=== PATIENT | female | born 1950 | race Caucasian/White ===

== ENCOUNTER 2021-04-03 13:14 | Inpatient (IN) ==
[2021-04-03] MEDS ORDERED: Naloxone 0.4 MG/ML INJ IVP PRN (17:15)
[2021-04-03] MEDS ORDERED: *HR* HYDROcodone/Acet 5/325 mg TABLET PO PRN (17:21)
[2021-04-03] MEDS: Nicotine 21 MG PATCH.TD24 TD SCH (18:08)
[2021-04-03 18:52] LABS: Basophils % 0.1 %; Eosinophils % 0.1 %; Hematocrit 37.4 % (35.3-44.9); Immature Granulocytes % 0.4 % (0-4); Lymphocytes # 4.4 K/mcL (0.6-4.6); Lymphocytes % 26.8 %; Mean Corpuscular HGB Conc 32.1 g/dL (31.6-35.5); Mean Corpuscular Hemoglobin 30.2 pg (28.0-33.3); Mean Corpuscular Volume 94.2 fL (83.0-100.0); Mean Platelet Volume 10.2 fL (9.4-12.4); Monocytes # 0.9 K/mcL (0.0-1.3); Monocytes % 5.2 %; Neutrophils # 11.1 K/mcL (1.6-8.9); Nucleated Red Blood Cells 0.1 /100 WBC (0); Platelet Count 290 K/mcL (140-400); Red Blood Count 3.97 M/mcL (3.82-4.97); Red Cell Distribution Width 12.8 % (11.5-14.5); Segmented Neutrophils % 67.4 %; White Blood Count 16.4 K/mcL (4.3-11.1)
[2021-04-04] MEDS: Ringers Solution, Lactated 1,000 ML IVC SCH (00:33)
[2021-04-04] MEDS: Acetaminophen 325 MG TABLET PO PRN ×2 (04:33→19:20)
[2021-04-04 05:24] LABS: Basophils % 0.3 %; Eosinophils % 0.1 %; Hematocrit 32.5 % (35.3-44.9); Hemoglobin 10.5 g/dL (11.5-15.4); Immature Granulocytes % 0.3 % (0-4); Lymphocytes # 4.9 K/mcL (0.6-4.6); Lymphocytes % 41.4 %; Mean Corpuscular HGB Conc 32.3 g/dL (31.6-35.5); Mean Corpuscular Volume 95.9 fL (83.0-100.0); Mean Platelet Volume 10.1 fL (9.4-12.4); Monocytes # 0.9 K/mcL (0.0-1.3); Monocytes % 7.5 %; Platelet Count 228 K/mcL (140-400); Red Blood Count 3.39 M/mcL (3.82-4.97); Segmented Neutrophils % 50.4 %; White Blood Count 11.9 K/mcL (4.3-11.1)
[2021-04-04 05:34] LABS: BUN/Creatinine Ratio 25 (6-26); Blood Urea Nitrogen 16 mg/dL (8-23); Calcium 9.6 mg/dL (8.6-10.3); Carbon Dioxide 27 mEq/L (23-29); Chloride 102 mEq/L (98-107); Glucose 134 mg/dL (70-105); Osmolality,Calculated 281 (280-300); Potassium 4.5 mEq/L (3.5-5.1); Sodium 134 mEq/L (136-145); eGFR For African Americans > 60 (> 60); eGFR For Non-African Americans > 60 (> 60)
[2021-04-04] MEDS ORDERED: Ondansetron 4 MG/2 ML VIAL IVP PRN (07:50)
[2021-04-04] MEDS ORDERED: *HR* HYDROmorphone PF 0.5 MG/0.5 ML SYRINGE IVP PRN (07:50)
[2021-04-04] MEDS ORDERED: Promethazine 6.25 MG in Water for inj. (sterile) 20 ML IVPB PRN (07:50)
[2021-04-04] MEDS ORDERED: *HR* OxyCODONE Immed Rel 5 MG TABLET PO PRN (07:50)
[2021-04-04] MEDS: Nicotine 21 MG PATCH.TD24 TD SCH ×2 (08:00→19:35)
[2021-04-04] MEDS ORDERED: Ondansetron 4 MG/2 ML VIAL ONE (09:10)
[2021-04-04] MEDS ORDERED: Lidocaine -MPF 2% 5 ML VIAL ONE (09:12)
[2021-04-04] MEDS ORDERED: *HR* Succinylcholine 200 MG/10 ML VIAL IVP ONE (09:12)
[2021-04-04] MEDS ORDERED: *HR* FentaNYL (PF) 100 MCG/2 ML VIAL ONE (09:12)
[2021-04-04] MEDS ORDERED: *HR* Propofol 200 MG/20 ML VIAL IVP ONE (09:12)
[2021-04-04] MEDS ORDERED: *HR* Rocuronium Bromide 50 MG/5 ML VIAL ONE (09:13)
[2021-04-04] MEDS ORDERED: Lidocaine HCL 4 ML Topical Solution (Laryng-O-Jet Kit Sterile Pak) TP ONE (09:15)
[2021-04-04] MEDS: cefTRIAXone 1,000 MG in 0.9 % Sodium Chloride Mini Bag 100 ML IVPB SCH (09:33)
[2021-04-04] MEDS ORDERED: Povidone-Iodine 45 ML, Sodium Chloride IRRigation 1,000 ML IR ONE (10:00)
[2021-04-04] MEDS ORDERED: TOTAL JOINT MIXTURE (100ML) INTRAART ONE (10:00)
[2021-04-04] MEDS ORDERED: Perflutren Lipid Microsphere 1.3 ML in 0.9 % Sodium Chloride 8.7 ML IVP PRN (10:54)
[2021-04-04 11:22] LABS: Basophils % 0.4 %; Hematocrit 30.1 % (35.3-44.9); Hemoglobin 9.8 g/dL (11.5-15.4); Immature Granulocytes % 0.4 % (0-4); Lymphocytes # 3.9 K/mcL (0.6-4.6); Lymphocytes % 35.1 %; Mean Corpuscular HGB Conc 32.6 g/dL (31.6-35.5); Mean Corpuscular Hemoglobin 30.7 pg (28.0-33.3); Mean Corpuscular Volume 94.4 fL (83.0-100.0); Monocytes # 0.7 K/mcL (0.0-1.3); Monocytes % 6.4 %; Neutrophils # 6.4 K/mcL (1.6-8.9); Platelet Count 206 K/mcL (140-400); Red Blood Count 3.19 M/mcL (3.82-4.97); Segmented Neutrophils % 57.7 %; White Blood Count 11.1 K/mcL (4.3-11.1)
[2021-04-04] MEDS: Cholecalciferol (D-3) 1,000 UNIT (25MCG) TABLET PO SCH (13:40)
[2021-04-05] MEDS: Ringers Solution, Lactated 1,000 ML IVC SCH (05:01)
[2021-04-05] MEDS: Acetaminophen 325 MG TABLET PO PRN (05:02)
[2021-04-05 05:26] LABS: BUN/Creatinine Ratio 21 (6-26); Blood Urea Nitrogen 13 mg/dL (8-23); Calcium 9.2 mg/dL (8.6-10.3); Carbon Dioxide 27 mEq/L (23-29); Chloride 100 mEq/L (98-107); Glucose 119 mg/dL (70-105); Osmolality,Calculated 277 (280-300); Potassium 4.2 mEq/L (3.5-5.1); Sodium 133 mEq/L (136-145); eGFR For African Americans > 60 (> 60); eGFR For Non-African Americans > 60 (> 60)
[2021-04-05] MEDS: Nicotine 21 MG PATCH.TD24 TD SCH (08:07)
[2021-04-05] MEDS: Cholecalciferol (D-3) 1,000 UNIT (25MCG) TABLET PO SCH (08:08)
[2021-04-05] MEDS: cefTRIAXone 1,000 MG in 0.9 % Sodium Chloride Mini Bag 100 ML IVPB SCH (08:09)
[2021-04-05] MEDS ORDERED: *HR* Succinylcholine 200 MG/10 ML VIAL IVP ONE (14:21)
[2021-04-05] MEDS ORDERED: Lidocaine -MPF 2% 5 ML VIAL ONE (14:21)
[2021-04-05] MEDS ORDERED: *HR* FentaNYL (PF) 100 MCG/2 ML VIAL ONE (14:21)
[2021-04-05] MEDS ORDERED: Ondansetron 4 MG/2 ML VIAL ONE (14:21)
[2021-04-05] MEDS ORDERED: *HR* Propofol 200 MG/20 ML VIAL IVP ONE (14:21)
[2021-04-05] MEDS ORDERED: EPHEDrine 50 MG/ML VIAL ONE (15:08)
[2021-04-05] MEDS ORDERED: Tranexamic Acid 1,000 MG/10 ML VIAL ONE (15:27)
[2021-04-05] MEDS ORDERED: Sennosides 8.6 MG TABLET PO PRN ×2 (16:20→17:37)
[2021-04-05] MEDS ORDERED: Naloxone 0.4 MG/ML INJ IVP PRN ×2 (16:23→17:37)
[2021-04-05] MEDS ORDERED: *HR* OxyCODONE Immed Rel 5 MG TABLET PO PRN ×2 (16:23→17:37)
[2021-04-05] MEDS ORDERED: Acetaminophen IV 1,000 MG/100 ML BAG IVPB ONE (16:25)
[2021-04-05] MEDS ORDERED: Morphine Sulfate 2 MG/ML SYRINGE IVP PRN (16:57)
[2021-04-05] MEDS ORDERED: Ondansetron 4 MG/2 ML VIAL IVP PRN (16:57)
[2021-04-05] MEDS ORDERED: Ringers Solution, Lactated 1,000 ML IVC SCH (17:37)
[2021-04-05] MEDS: Aspirin Enteric Coated 81 MG Tablet PO SCH (20:57)
[2021-04-05] MEDS ORDERED: Aspirin Enteric Coated 81 MG Tablet PO SCH (21:00)
[2021-04-05] MEDS: CeFAZolin 2 GM/120 ML BAG IVPB SCH (23:08)
[2021-04-06] MEDS ORDERED: CeFAZolin 2 GM/120 ML BAG IVPB SCH
[2021-04-06 05:17] LABS: Basophils % 0.1 %; Hematocrit 20.9 % (35.3-44.9); Immature Granulocytes % 0.5 % (0-4); Lymphocytes % 28.9 %; Mean Corpuscular HGB Conc 32.5 g/dL (31.6-35.5); Mean Corpuscular Hemoglobin 30.8 pg (28.0-33.3); Mean Corpuscular Volume 94.6 fL (83.0-100.0); Mean Platelet Volume 10.7 fL (9.4-12.4); Monocytes # 0.8 K/mcL (0.0-1.3); Monocytes % 7.7 %; Neutrophils # 6.4 K/mcL (1.6-8.9); Platelet Count 185 K/mcL (140-400); Red Blood Count 2.21 M/mcL (3.82-4.97); Red Cell Distribution Width 12.9 % (11.5-14.5); Segmented Neutrophils % 62.8 %; White Blood Count 10.2 K/mcL (4.3-11.1)
[2021-04-06 05:19] LABS: BUN/Creatinine Ratio 19 (6-26); Blood Urea Nitrogen 10 mg/dL (8-23); Calcium 8.4 mg/dL (8.6-10.3); Carbon Dioxide 26 mEq/L (23-29); Chloride 102 mEq/L (98-107); Glucose 138 mg/dL (70-105); Osmolality,Calculated 279 (280-300); Potassium 4.3 mEq/L (3.5-5.1); Sodium 134 mEq/L (136-145); eGFR For African Americans > 60 (> 60); eGFR For Non-African Americans > 60 (> 60)
[2021-04-06 05:20] LABS: Hemoglobin 6.8 g/dL (11.5-15.4)
[2021-04-06] MEDS: Aspirin Enteric Coated 81 MG Tablet PO SCH ×2 (08:55→20:22)
[2021-04-06] MEDS: Cholecalciferol (D-3) 1,000 UNIT (25MCG) TABLET PO SCH (08:55)
[2021-04-06] MEDS: CeFAZolin 2 GM/120 ML BAG IVPB SCH (08:56)
[2021-04-06] MEDS: Nicotine 21 MG PATCH.TD24 TD SCH (08:57)
[2021-04-06] MEDS: cefTRIAXone 1,000 MG in 0.9 % Sodium Chloride Mini Bag 100 ML IVPB SCH (10:13)
[2021-04-06] MEDS ORDERED: 0.9 % Sodium Chloride 250 ML ONE (12:08)
[2021-04-07 04:45] LABS: Basophils % 0.3 %; Eosinophils # 0.1 K/mcL (0.0-0.6); Eosinophils % 0.8 %; Hematocrit 30.1 % (35.3-44.9); Immature Granulocytes % 0.5 % (0-4); Lymphocytes # 5.6 K/mcL (0.6-4.6); Lymphocytes % 45.8 %; Mean Corpuscular HGB Conc 33.6 g/dL (31.6-35.5); Mean Corpuscular Volume 95.3 fL (83.0-100.0); Mean Platelet Volume 10.2 fL (9.4-12.4); Monocytes # 0.8 K/mcL (0.0-1.3); Monocytes % 6.2 %; Neutrophils # 5.7 K/mcL (1.6-8.9); Platelet Count 212 K/mcL (140-400); Red Blood Count 3.16 M/mcL (3.82-4.97); Red Cell Distribution Width 13.6 % (11.5-14.5); Segmented Neutrophils % 46.4 %; White Blood Count 12.2 K/mcL (4.3-11.1)
[2021-04-07 04:48] LABS: Hemoglobin 10.1 g/dL (11.5-15.4)
[2021-04-07 05:09] LABS: BUN/Creatinine Ratio 26 (6-26); Blood Urea Nitrogen 14 mg/dL (8-23); Calcium 8.7 mg/dL (8.6-10.3); Carbon Dioxide 26 mEq/L (23-29); Chloride 104 mEq/L (98-107); Glucose 99 mg/dL (70-105); Osmolality,Calculated 281 (280-300); Potassium 4.1 mEq/L (3.5-5.1); Sodium 135 mEq/L (136-145); eGFR For African Americans > 60 (> 60); eGFR For Non-African Americans > 60 (> 60)
[2021-04-07 05:18] LABS: Anisocytosis 1+ (Not Present); Platelet Estimate Normal (Normal); Reactive Lymphocytes Present (Not Present)
[2021-04-07] MEDS: cefTRIAXone 1,000 MG in 0.9 % Sodium Chloride Mini Bag 100 ML IVPB SCH (07:57)
[2021-04-07] MEDS: Cholecalciferol (D-3) 1,000 UNIT (25MCG) TABLET PO SCH (07:58)
[2021-04-07] MEDS: Aspirin Enteric Coated 81 MG Tablet PO SCH ×2 (07:59→19:59)
[2021-04-07] MEDS: Nicotine 21 MG PATCH.TD24 TD SCH (08:00)
[2021-04-07] MEDS ORDERED: Ipratropium/Albuterol Neb 3 ML IH PRN (10:56)
[2021-04-08 05:03] LABS: Basophils % 0.3 %; Eosinophils # 0.1 K/mcL (0.0-0.6); Eosinophils % 1.4 %; Hematocrit 29.1 % (35.3-44.9); Hemoglobin 9.5 g/dL (11.5-15.4); Immature Granulocytes % 0.4 % (0-4); Lymphocytes # 4.9 K/mcL (0.6-4.6); Lymphocytes % 48.5 %; Mean Corpuscular HGB Conc 32.6 g/dL (31.6-35.5); Mean Corpuscular Hemoglobin 32.2 pg (28.0-33.3); Mean Corpuscular Volume 98.6 fL (83.0-100.0); Mean Platelet Volume 9.9 fL (9.4-12.4); Monocytes # 0.6 K/mcL (0.0-1.3); Monocytes % 5.9 %; Neutrophils # 4.4 K/mcL (1.6-8.9); Platelet Count 240 K/mcL (140-400); Red Blood Count 2.95 M/mcL (3.82-4.97); Red Cell Distribution Width 14.1 % (11.5-14.5); Segmented Neutrophils % 43.5 %; White Blood Count 10.2 K/mcL (4.3-11.1)
[2021-04-08] MEDS: Nicotine 21 MG PATCH.TD24 TD SCH (09:05)
[2021-04-08] MEDS: cefTRIAXone 1,000 MG in 0.9 % Sodium Chloride Mini Bag 100 ML IVPB SCH (09:06)
[2021-04-08] MEDS: Aspirin Enteric Coated 81 MG Tablet PO SCH (09:06)
[2021-04-08] MEDS: Cholecalciferol (D-3) 1,000 UNIT (25MCG) TABLET PO SCH (09:06)
[2021-04-08 12:08] LABS: Influenza A PCR Negative (Negative); Influenza B PCR Negative (Negative); Resp. Syncytial Virus PCR Negative (Negative); SARS-CoV-2 by PCR (In House) Negative (Negative)
[2021-04-08 15:32] VITALS: BP 153/72; PULSE 101; TEMP 98.1; O2SAT 96
== END 2021-04-08 17:46 | disposition other institution (70) | DRG 481 ==
LOC: 4WAOSI → SUATTDRO 18:34
PROVIDERS: ADMIT Pharmacist; ATTEND Internal Medicine